=== PATIENT | male | born 1960 | race Caucasian/White ===

== ENCOUNTER 2016-12-22 10:13 | Inpatient (IN) | payer BC, OTHER ==
[2016-11-30 10:02] VITALS: BMI 27.0
--- NOTE | 2016-11-30 10:28 | PAT Medication Instructions ---
Service Date Nov 30, 2016. Current Home Medication List Bupropion (Wellbutrin Sr), 150 MG PO BID Lamotrigine (Lamictal), 200 MG PO BID Lorazepam (Ativan), 1 MG PO QID Medication Instructions For Your Scheduled Surgery - Take the following medications the morning of surgery with a sip of water: Lorazepam (Ativan), 1 MG PO QID Bupropion (Wellbutrin Sr), 150 MG PO BID Lamotrigine (Lamictal), 200 MG PO BID - Take the following medications as scheduled the night before surgery: Lorazepam (Ativan), 1 MG PO QID Bupropion (Wellbutrin Sr), 150 MG PO BID Lamotrigine (Lamictal), 200 MG PO BID If you have any questions please call us at [phone] or [phone] or [phone]
[2016-11-30 11:03] LABS: URINE APPEARANCE CLEAR (CLEAR); URINE BILIRUBIN NEG (NEG); URINE COLOR YELLOW; URINE NITRITE NEG (NEG); URINE SPECIFIC GRAVITY 1.021 (1.000-1.030); UROBILINOGEN NEG (NEG); ZZUR CULT IF INDIC CLEAN CATCH NO
[2016-11-30 11:04] LABS: BASO % 0.6 %; BASO ABS # 0.05 K/uL (0-0.2); COMPLETE YES; EOS % 2.9 %; HEMATOCRIT 47.7 % (42-52); IG% 0.1 %; LYMPH ABS # 2.09 K/uL (1.2-3.4); MEAN CORPUSCULAR HEMOGLOBIN 33.7 pg (25-34); MEAN CORPUSCULAR HGB CONC 35.4 g/dl (32-36); MEAN PLATELET VOLUME 10.1 fL (7.4-10.4); MONO % 6.2 %; NEUT % 66.2 %; PLATELET COUNT 367 K/uL (130-400); RED BLOOD COUNT 5.02 M/uL (4.7-6.1); WHITE BLOOD COUNT 8.71 K/uL (4.8-10.8)
[2016-11-30 11:06] LABS: MANUAL MICROSCOPIC REQUIRED? NO; REVIEW REQ? NO
[2016-11-30 11:13] LABS: PARTIAL THROMBOPLASTIN RATIO 1.3; PROTHROMBIN TIME (PATIENT) 10.2 SECONDS (9.0-12.0)
--- NOTE | 2016-11-30 11:16 | DIAGNOSTIC IMAGING REPORT ---
CHEST PREADMISSION(PA/LAT) HISTORY: 56 years-old Male PAT preadmission study. No acute chest complaints COMPARISON: None available TECHNIQUE: Frontal and lateral views of the chest FINDINGS: Cardiomediastinal and hilar silhouettes are within normal limits. There is atherosclerosis of the aorta. No pneumothorax, pleural effusion or focal airspace consolidation. There is mild hyperinflation. The bones of the chest are grossly intact. Degenerative changes are seen about the shoulders. Cholecystectomy clips are noted. IMPRESSION: Mild hyperinflation without acute cardiopulmonary process. The above report was generated using voice recognition software. It may contain grammatical, syntax or spelling errors. Electronically signed by: Yinka Lara M.D. 11/30/2016 11:14 AM Dictated Date/Time: 11/30/2016 11:10 AM
[2016-11-30 12:05] LABS: BUN/CREATININE RATIO 11.9 (10-20); CALCIUM 9.7 mg/dl (8.5-10.1); CREATININE 1.1 mg/dl (0.60-1.40); POTASSIUM 5.2 mmol/L (3.5-5.1)
--- NOTE | 2016-12-21 19:27 | HISTORY & PHYSICAL EXAMINATION ---
DATE OF ADMISSION: CHIEF COMPLAINT: Chronic left shoulder pain. HISTORY OF PRESENT ILLNESS: This is a 56-year-old male patient of Dr. Hackett complaining of chronic left shoulder pain, longstanding, now progressively getting worse over the past 7-8 years. No trauma or injuries. X-rays and clinical exams have diagnosed end-stage osteoarthritis. The patient wishes to proceed with a left total shoulder arthroplasty. PAST MEDICAL HISTORY: Loud snoring with no diagnosis of sleep apnea, anxiety, acid reflux. SOCIAL HISTORY: He is 1-1/2 pack per day smoker and he is an occasional drinker. PAST SURGICAL HISTORY: Back surgery and left shoulder surgery x2. FAMILY HISTORY: Noncontributory. REVIEW OF SYSTEMS: The patient complains of chronic left shoulder pain and decreased function. Otherwise, denies any shortness of breath, chest pain, nausea, vomiting or any other joint complaints. MEDICATIONS: Include Wellbutrin 150 mg b.i.d., Lamictal 200 mg b.i.d., Ativan 1 mg q.i.d. p.r.n. ALLERGIES: No known drug allergies. PHYSICAL EXAMINATION: GENERAL: Well-developed, well-nourished 56-year-old male in no acute distress. He is alert and oriented x3 and pleasant. HEENT: Normocephalic, atraumatic. Extraocular motions are intact. Pupils are equal and reactive to light. HEART: Regular rate and rhythm, no murmurs appreciated. LUNGS: Clear. ABDOMEN: Soft, nontender, bowel sounds are present. EXTREMITIES: Left shoulder reveals crepitation and pain with passive range of motion. Active range of motion is 280 degrees of forward elevation passively to 170. He has 4+/5 strength. NEUROLOGIC: Neurovascularly he is intact in his left upper extremity. DIAGNOSES: Left shoulder end-stage osteoarthritis. He has a history of anxiety. He has a history of snoring with no diagnosis of sleep apnea. He has acid reflux. PLAN: The patient was advised of his diagnosis. Indications, risks, benefits, and postop course have all been reviewed. The patient wishes to proceed with a left total shoulder arthroplasty. Necessary consent forms, preoperative testing and clearances will be obtained.
[~2016-12-22] VITALS: Ht 175.3 cm; Wt 84.0 kg
[2016-12-22] VITALS (7 sets, daily range): BP systolic 121–162; BP diastolic 71–103; PULSE 62–80; TEMP 36.4–36.9; O2SAT 94–96; Ht 175.3 cm; Wt 84.0 kg
[~2016-12-22 10:13] MED LIST: ACETAMINOPHEN 500 MG TAB PO SCH; ATROPINE SULFATE 0.1 MG/ML 5ML SYR IV PRN; ATV/1 PO; BUPR-79 PO; CEFAZOLIN 2000MG IV PUSH 10 ML IV SCH; CeleBREX 200 MG CAP PO SCH; DEXAMETHASONE 4 MG TAB PO SCH; EpHEDrine SULFATE INJ 50 MG/ML AMP IV PRN; FAMOTIDINE 20 MG TAB PO SCH; FENTANYL CITRATE INJ 50 MCG/1 ML 2 ML VIAL IV PRN; GABAPENTIN 300 MG CAP PO SCH; HYDROmorphone INJ 1 MG/ML SYR IV PRN; LACTATED RINGER'S 1000ML 1,000 ML IV SCH; LACTATED RINGER'S 1000ML IV SCH; LAMO200T38 PO; METOCLOPRAMIDE HCL 10 MG TAB PO SCH; ONDANSETRON INJ 2 MG/ML 2 ML VIAL IV PRN; PROMETHAZINE HCL INJ 12.5 MG in SODIUM CHLORIDE 0.9% 50ML 50 ML IV PRN; ROPIVACAINE 0.5% 5 MG/ML 30 ML VIAL ONE
[2016-12-22] MEDS ORDERED: MIDAZOLAM HCL 1 MG/ML 2ML VIAL ONE (10:53)
[2016-12-22] MEDS ORDERED: FENTANYL CITRATE INJ 50 MCG/1 ML 2 ML VIAL ONE ×2 (10:53→17:00)
--- NOTE | 2016-12-22 11:28 | History & Physical Bridge Note ---
H&P Re-Evaluation Bridge Note: I have examined the patient, reviewed the History & Physical and in the interval since the performance of the History & Physical I have noted the following changes of clinical significance: No changes noted
[2016-12-22] MEDS ORDERED: BACITRACIN 50000 UNIT VIAL ONE (11:37)
[2016-12-22] MEDS ORDERED: EpINEphrine HCL INJ 1 MG/ML 5ML SYRINGE ONE (11:38)
[2016-12-22] MEDS ORDERED: PROPOFOL IV EMULSION 10 MG/ML 20 ML VIAL IV ONE (13:44)
[2016-12-22] MEDS ORDERED: ROCURONIUM BROMIDE 10 MG/ML 5 ML VIAL IV ONE ×2 (13:44→14:14)
[2016-12-22] MEDS ORDERED: ONDANSETRON INJ 2 MG/ML 2 ML VIAL ONE (13:44)
[2016-12-22] MEDS ORDERED: NEOSTIGMINE METHYLSULFATE 5 MG/5 ML SYR ONE (13:44)
[2016-12-22] MEDS ORDERED: LIDOCAINE HCL 2% 2 ML VIAL (20MG/ML) ONE (13:44)
[2016-12-22] MEDS ORDERED: GLYCOPYRROLATE INJ 0.2 MG/ML VIAL ONE (13:44)
[2016-12-22] MEDS ORDERED: DEXAMETHASONE SOD INJ 4 MG/ML VIAL ONE (13:44)
[2016-12-22] MEDS ORDERED: MAGNESIUM HYDROXIDE SUSP 30 ML UDC PO PRN (16:45)
[2016-12-22] MEDS ORDERED: MoRPHine SULFATE 4 MG/ML 1 ML CARP\\VIAL IV PRN (16:45)
[2016-12-22] MEDS ORDERED: ONDANSETRON INJ 2 MG/ML 2 ML VIAL IV PRN (16:45)
[2016-12-22] MEDS ORDERED: MoRPHine SULFATE 2 MG/ML CARP IV PRN (16:45)
[2016-12-22] MEDS ORDERED: BISACODYL 10 MG SUPP PR PRN (16:45)
[2016-12-22] MEDS ORDERED: ALUMINUM/MAGNESIUM SUSP 30 ML UDC PO PRN (16:45)
--- NOTE | 2016-12-22 16:46 | [facility] Post Operative Brief Note ---
Immediate Operative Summary Operative Date Dec 22, 2016. Pre-Operative Diagnosis Left shoulder end-stage osteoarthritis,calcium deposit subscapularis tendon,hx of prior surgery x 2 for instability Post-Operative Diagnosis same as pre-operative Procedure(s) Performed Left total shoulder arthroplasty,bliceps tenodesis, exclision calcium deposit ,excision old suture material and large bone fragments anterior capsule. Surgeon Dr. Rodriguez [employer] Registrar Surgeon(s) Krunal Merino PA-C Estimated Blood Loss 50CC Findings as above , grade 4 djd,eburnated bone. Specimens Specimen A: Portion of left humeral head Drains 2 hemovac Anesthesia general and regional Complication(s) None Disposition Recovery Room / PACU
--- NOTE | 2016-12-22 16:59 | DIAGNOSTIC IMAGING REPORT ---
L SHOULDER MIN 2 VIEWS ROUTINE HISTORY: 56 years-old Male Post shoulder surgery status post left shoulder arthroplasty. Degenerative joint disease. COMPARISON: Chest radiograph 11/30/2016. TECHNIQUE: 2 views of the left shoulder FINDINGS: Status post left shoulder hemiarthroplasty. Surgical drain is in place with associated skin lyly and expected postsurgical soft tissue swelling and deep tissue air. Alignment is satisfactory. No periprosthetic fracture or retained foreign body. Subsegmental linear atelectasis of the left lung base. IMPRESSION: Status post left shoulder hemiarthroplasty without complication identified. The above report was generated using voice recognition software. It may contain grammatical, syntax or spelling errors. Electronically signed by: Yinka Lara M.D. 12/22/2016 4:57 PM Dictated Date/Time: 12/22/2016 4:56 PM
[2016-12-22] MEDS ORDERED: LORAZEPAM 1 MG TAB PO SCH ×2 (17:00→21:00)
[2016-12-22] MEDS ORDERED: HYDROmorphone INJ 1 MG/ML SYR ONE (17:19)
--- NOTE | 2016-12-22 17:50 | Anesthesiology Progress Note ---
Anesthesia Post Op Note Date & Time Dec 22, 2016 at 17:50 Vital Signs Pain Intensity: 6.0 Vital Signs Past 12 Hours Date Time Temp Pulse Resp B/P (MAP) Pulse Ox O2 Delivery O2 Flow Rate FiO2 12/22/16 17:43 36.8 12/22/16 17:42 80 16 12/22/16 17:42 78 16 95 12/22/16 17:41 155/86 12/22/16 17:37 82 16 12/22/16 17:37 82 16 96 12/22/16 17:36 154/97 12/22/16 17:32 81 14 95 12/22/16 17:32 81 14 12/22/16 17:31 152/94 12/22/16 17:27 78 15 12/22/16 17:27 79 15 95 12/22/16 17:26 138/86 12/22/16 17:24 84 13 12/22/16 17:24 82 13 94 12/22/16 17:21 155/95 12/22/16 17:19 73 16 94 12/22/16 17:19 74 16 12/22/16 17:16 162/91 12/22/16 17:14 73 16 12/22/16 17:14 73 16 94 12/22/16 17:13 77 16 95 12/22/16 17:13 77 16 12/22/16 17:11 149/82 12/22/16 17:08 76 14 12/22/16 17:08 76 14 94 12/22/16 17:06 147/88 12/22/16 17:03 80 18 12/22/16 17:03 80 18 94 12/22/16 17:02 81 17 95 12/22/16 17:02 80 17 12/22/16 17:01 152/89 12/22/16 16:57 82 19 96 12/22/16 16:57 83 19 12/22/16 16:56 154/96 12/22/16 16:52 88 17 153/90 12/22/16 16:52 17 12/22/16 16:51 162/109 12/22/16 16:47 84 17 12/22/16 16:47 84 17 149/84 99 12/22/16 16:42 84 13 12/22/16 16:42 83 13 98 12/22/16 16:41 169/88 12/22/16 16:38 154/86 12/22/16 16:37 36.3 87 18 154/86 97 Oxymask 10 12/22/16 16:37 91 16 96 12/22/16 16:37 91 16 12/22/16 10:30 36.4 62 18 162/103 96 Notes Mental Status: alert / awake / arousable, participated in evaluation Pt Amnestic to Procedure: Yes Nausea / Vomiting: adequately controlled Pain: adequately controlled Airway Patency, RR, SpO2: stable & adequate BP & HR: stable & adequate Hydration State: stable & adequate Anesthetic Complications: no major complications apparent Block working well in pacu
[2016-12-22] MEDS: D5W AND 1/2NSS + 20MEQ KCL 1,000 ML IV SCH (18:45)
--- NOTE | 2016-12-22 19:13 | OPERATIVE REPORT ---
DATE OF OPERATION: 12/22/2016 INDICATION FOR PROCEDURE: The patient is a 56-year-old male with a long history of left shoulder pain. He has chronic progressive osteoarthritis in his left shoulder. He has had too instability surgeries in his shoulder years ago. He has radiographs demonstrating that he is [id number] in the glenohumeral joint, has more of a concentric wear type pattern. He also had radiographs, also demonstrated a large calcium deposit in the subscapularis tendon. PREOPERATIVE DIAGNOSES: Left shoulder end-stage osteoarthritis, history of prior instability surgeries x2, calcium deposits subscapularis tendon. POSTOPERATIVE DIAGNOSES: Left shoulder end-stage osteoarthritis, history of prior instability surgeries x2, calcium deposits subscapularis tendon, biceps tendinopathy, old suture material status post prior anterior capsular and subscapularis repair with large bone fragments in the anterior capsule. PROCEDURE: Left total shoulder arthroplasty, biceps tenodesis, excision of calcium deposit subscapularis, excision old suture material and large bone fragments anterior capsule. SURGEON: Shiv Rodriguez MD. MEMBERSHIP CORRESPONDENT: Krunal Merino PA-C. ANESTHESIA: Regional block and general. OPERATIVE PROCEDURE: The patient was taken to the operating room, anesthetized with regional block and general anesthetic. He was positioned on the operating room table in a 30 degree beach chair position. He was translated to left side of the bed, so his shoulder could be manipulated off the bed as necessary. A towel roll was placed under the medial border of his left scapula. A foam headrest was placed. Protective eyewear was placed. TEDs and SCDs were placed. Left shoulder exam demonstrated that he had 140 degrees of forward elevation, 90 degrees of abduction and external rotation to 25-30 degrees only. He had an old scar anteriorly about the left shoulder which is more lateral than a typical deltopectoral approach. The patient's left shoulder was sterilely prepped and draped with ChloraPrep. I did not use the previous scar as I felt it was malpositioned and made an incision in the deltopectoral interval right along the interval, starting at or just slightly medial to the coracoid process extending down along the deltopectoral interval and this incision did intersect the lower tip of the other scar. The skin was incised sharply. The subcutaneous flaps were elevated. The patient's cephalic vein was dissected out and retracted laterally with the deltoid. Pectoralis was retracted medially. A centimeter of the pectoralis was released for inferior exposure. There was some chronic biceps tenosynovitis. Tendon sheath was opened up. Tenosynovectomy was performed. The biceps tendon was tenodesed to the pectoralis tendon with fcubhm-[id number] #2 Fiberwire sutures and the proximal biceps was resected. The circumflex vessels were identified, tied off with silk ties and divided laterally. The bursa over the subscapularis was resected. This revealed small suture material where the subscapularis was transected from prior surgery. There was also a large calcium deposit within the subscapularis tendon noted. All suture material was removed with a rongeur. The subscapularis bursa and bursa in the subacromial space was resected revealing an intact rotator cuff. A self-retaining retractor was placed to retract the conjoined tendon medially and the deltoid laterally. The muscle fibers of the subscapularis was split at the level of the circumflex vessels. They were split down to the capsule which was clearly identified and a Kitner elevator was used to reflect the subscapularis fibers off the inferior capsule and the axillary nerve was identified with a tug test and protected with a blunt Hohmann retractor. The rotator interval was then opened up and extended laterally. Some of the joint effusion was evacuated. A transtendinous incision was made through the subscapularis revealed repair site leaving a cuff of tissue for repair on the lesser tuberosity. For making this incision we entered this large calcium deposit which had to be shelled out from the underlying subscapularis tendon. The deposit was at least 2 cm x 1 cm. The incision was carried through the subscapularis through the capsule lateral to the joint line and then a traction suture using #1 Vicryl was placed into the subscapularis tendon. The rotator interval was opened up down to the glenoid. The Fukuda retractor was placed into the joint. The humeral head was retracted posteriorly. This revealed glenoid was completely down to bone on bone and there were large calcified spurs or calcifications in the old suture material which was in the anterior capsule, possibly from the old repair noted anterior to the glenoid and attached to the capsule. At this time to get better exposure I externally rotated the humerus and removed the inferior humeral osteophytes from anterior to posterior and I released the capsule along the neck of the humerus. Then retracted the humerus posterior to the glenoid, released the capsule off the anterior glenoid and then released the rotator interval, we had a 360 degree release of the subscapularis. We also freed up the large calcified loose bodies or bone spurs from the underlying capsule and resected them completely along with some of the suture material which was resected from the old repair. We did an anterior inferior and posterior inferior capsular release using electrocautery on bone and a Edward elevator to gain exposure to the glenoid. The axillary nerve was safely protected during this procedure. At this time, the humeral head was re-exposed with extension and external rotation and the oscillating saw was used to resect the articular surface in an anatomic fashion match the patient's normal version. The humeral shaft was then prepared for the implant using an awl followed by sequential broaches up to a size 5. The 5 broach was left in place and a cup protector was placed and then we retracted the humerus posterior to the glenoid. We had full exposure of the glenoid which was completely devoid of any articular surface and was eburnated bone. There was more of a concentric type wear pattern. The head size was sized for a 52, so we were with a 52 glenoid component. We used the Affiniti CortiLoc glenoid component from 20A and the Ascend Flex system from 20A. The retractors were placed to expose the glenoid. The 52 template was placed and the central drill hole was marked, central drill hole was made followed by a 52 mm reamer followed by the guide for the peripheral peg holes, which were drilled and then the glenoid was irrigated and the holes were packed with epinephrine soaked tampons. Then the Palacos G cement was vacuum mixed. Then the glenoid was dried and the 52 pegged Affiniti CortiLoc glenoid was cemented into position with the central peg press fit and peripheral peg cemented base of central peg cemented. This was fully impacted that tight press fit and held in place until the cement cured and then went ahead and prepared the humerus for trialing. I went ahead and trialed a 52 x 18 and a 52 x 23 mm in diameter humeral head. The patient had some laxity in ligaments posteriorly so the smaller diameter humeral head had some posterior subluxation with forward elevation, so I felt we need to improve stability and I went ahead with the 23 x 52 high offset humeral head with eccentric offset posterior. This trialed well and was stable through full motion. The patient was noted to have some generalized ligamentous laxity of shoulder. The trial components were removed. The angle of the trial was a B angle so the final humeral component was assembled which was the 5B standard humeral stem assembled to the 52 x 23 mm high offset humeral head. The humeral shaft was irrigated out. We placed 3 drill holes through the hard bone in the bicipital groove lateral to the lesser tuberosity and placed transosseous #5 FiberWire sutures through and then took some bone graft from the humeral head and partially put the 5B stem which was assembled to the humeral head part way down the shaft. We placed the bone graft in there to enhance a tighter press fit fixation and then impacted the implant fully with a tight pressfit. The humerus was then reduced to the glenoid. We verified stability. The subscapularis was then repaired with the transosseous #5 FiberWire sutures and we did further soft tissue fixation with iwngli-os-vtqfs #2 FiberWire yvak-vy-rqry sutures in the soft tissue and closed the rotator interval in maximal external rotation with mpszju-dl-yjlfd #2 FiberWire sutures. The pectoralis was then repaired with rlqrfk-px-rcbgt #2 FiberWire sutures reinforcing the tenodesis of the biceps by passing sutures through the biceps as well. The shoulder was then assessed for range of motion and the patient had 140 degrees of forward elevation, 110 degrees of abduction and 25 degrees of external rotation without any tension on the repair. Shoulder was stable. The wound was irrigated with antibiotic solution and bacitracin. Two drains were brought out laterally and connected to a Hemovac. They were placed deep to deltopectoral interval. One was placed deep to the conjoined tendon and 1 posterior to the deltoid. Then the deltopectoral interval was closed with kbzdxl-pe-ejbgs #1 Vicryl sutures and the subcutaneous tissue closed with interrupted 2-0 Vicryl sutures, skin closed with lyly. Estimated blood loss 50 mL. SAVANNA Pizarro was my psychiatric technician assistant. He functioned as psychiatric technician assistant with arm positioning, soft tissue retraction, instrument management and performed the subcutaneous skin closure and will participate in postop care of the patient. I attest to the content of the Intraoperative Record and any orders documented therein. Any exception s are noted below.
[2016-12-22] MEDS ORDERED: LORAZEPAM 1 MG TAB PO PRN (19:15)
--- NOTE | 2016-12-22 20:25 | Medical Consult ---
Consultation Date of Consultation: Dec 22, 2016. Attending Physician: Shiv Rodriguez M.D. Reason for Consultation: Medical eval post-op History of Present Illness 56 y/o M Hx ZABRINA, GERD - presented for elective L TSA. Post-op pt has no specific complaints. Pain is adequately controlled, denies CP, SOB, N/V. Walking and tolerating PO. Past Medical/Surgical History 1) Borderline ZABRINA on sleep study - not advised on CPAP 2) GERD Family History Non contributory Social History Smoking Status: Current Every Day Smoker Allergies Coded Allergies: No Known Allergies (Verified , 12/22/16) Current Inpatient Medications Current Inpatient Medications Medications (Trade) Dose Ordered Sig/Jay Route Start Time Stop Time Status Last Admin Dose Admin Lactated Ringer's 1,000 ml @ 60 mls/hr [id number] IV 12/22/16 06:00 12/22/16 22:39 Lactated Ringer's 1,000 ml @ 15 mls/hr Q24H IV 12/22/16 06:00 12/23/16 05:59 12/22/16 10:46 15 MLS/HR Bupropion HCl (Wellbutrin-Sr Tab) 150 mg BID PO 12/22/16 21:00 01/21/17 20:59 Lamotrigine (Lamictal Tab) 200 mg BID PO 12/22/16 21:00 01/21/17 20:59 Morphine Sulfate (MoRPHine SULFATE INJ) 2 mg Q4HWA PRN IV 12/22/16 16:45 01/05/17 16:44 Morphine Sulfate (MoRPHine SULFATE INJ) 4 mg Q4HWA PRN IV 12/22/16 16:45 01/05/17 16:44 Ondansetron HCl (Zofran Inj) 4 mg Q6H PRN IV 12/22/16 16:45 01/21/17 16:44 Al Hydroxide/Mg Hydroxide (Maalox Susp) 30 ml Q4H PRN PO 12/22/16 16:45 01/21/17 16:44 Pantoprazole Sodium (Protonix Tab) 40 mg QAM PO 12/23/16 09:00 01/22/17 08:59 Potassium Chloride/Dextrose/ Sod Cl 1,000 ml @ 100 mls/hr Q10H IV 12/22/16 18:30 01/21/17 18:29 12/22/16 18:45 100 MLS/HR Celecoxib (CeleBREX CAP) 200 mg BID PO 12/22/16 21:00 01/21/17 20:59 Oxycodone HCl (Roxicodone Immediate Rel Tab) `1-2 TABS FOR PAIN `1 TAB... Q4H PRN PO 12/22/16 16:45 01/05/17 16:44 Acetaminophen (Tylenol Tab) 1,000 mg Q8 PO 12/22/16 22:00 01/21/17 21:59 Magnesium Hydroxide (Milk Of Magnesia Susp) 30 ml Q6H PRN PO 12/22/16 16:45 01/21/17 16:44 Bisacodyl (Dulcolax Supp) 10 mg DAILY PRN NM 12/22/16 16:45 01/21/17 16:44 Docusate Sodium (coLACE CAP) 100 mg BID PO 12/22/16 21:00 01/21/17 20:59 Multivitamins (Multivitamin Tab) 1 tab DAILY PO 12/23/16 09:00 01/22/17 08:59 Cefazolin Sodium 2000 mg/Syringe 10 ml @ 2.5 mls/min Q8H IV 12/22/16 22:00 12/23/16 21:59 Lorazepam (Ativan Tab) 1 mg HS PO 12/22/16 21:00 01/21/17 20:59 Lorazepam (Ativan Tab) 1 mg TID PRN PO 12/22/16 19:15 01/21/17 19:14 Review of Systems Constitutional: No fever, No chills, No sweats Eyes: No worsening of vision ENT: No hearing loss, No unusual epistaxis, No nasal symptoms Respiratory: No cough, No wheezing Cardiovascular: No chest pain, No orthopnea, No PND Abdomen: No pain, No vomiting Musculoskeletal: + joint pain, + muscle pain (Pain is limited to the surgical site) Genitourinary - Male: No hematuria, No dysuria Neurologic: No memory loss, No weakness Psychiatric: No depression symptoms Endocrine: No fatigue Hematologic / Lymphatic: No abnormal bleeding/bruising Integumentary: No rash Allergic / Immunologic: No environmental allergies Physical Exam Date Time Temp Pulse Resp B/P (MAP) Pulse Ox O2 Delivery O2 Flow Rate FiO2 12/22/16 19:59 36.9 74 18 121/71 (88) 96 Nasal Cannula 2.0 12/22/16 19:59 Nasal Cannula 2.0 12/22/16 19:00 36.7 72 18 131/75 (93) 95 Nasal Cannula 2.0 12/22/16 18:38 36.5 74 18 135/84 (101) 95 Nasal Cannula 2.0 12/22/16 18:00 94 Nasal Cannula 2.0 12/22/16 18:00 36.5 80 18 142/88 (106) 94 Nasal Cannula 2.0 12/22/16 17:48 79 16 12/22/16 17:48 77 16 96 12/22/16 17:46 148/94 12/22/16 17:43 74 16 94 12/22/16 17:43 36.8 12/22/16 17:43 75 16 12/22/16 17:42 80 16 12/22/16 17:42 78 16 95 12/22/16 17:41 155/86 12/22/16 17:37 82 16 12/22/16 17:37 82 16 96 12/22/16 17:36 154/97 12/22/16 17:32 81 14 95 12/22/16 17:32 81 14 12/22/16 17:31 152/94 12/22/16 17:27 78 15 12/22/16 17:27 79 15 95 12/22/16 17:26 138/86 12/22/16 17:24 84 13 12/22/16 17:24 82 13 94 12/22/16 17:21 155/95 12/22/16 17:19 73 16 94 12/22/16 17:19 74 16 12/22/16 17:16 162/91 12/22/16 17:14 73 16 12/22/16 17:14 73 16 94 12/22/16 17:13 77 16 95 12/22/16 17:13 77 16 12/22/16 17:11 149/82 12/22/16 17:08 76 14 12/22/16 17:08 76 14 94 12/22/16 17:06 147/88 12/22/16 17:03 80 18 12/22/16 17:03 80 18 94 12/22/16 17:02 81 17 95 12/22/16 17:02 80 17 12/22/16 17:01 152/89 12/22/16 16:57 82 19 96 12/22/16 16:57 83 19 12/22/16 16:56 154/96 12/22/16 16:52 88 17 153/90 12/22/16 16:52 17 12/22/16 16:51 162/109 12/22/16 16:47 84 17 12/22/16 16:47 84 17 149/84 99 12/22/16 16:42 84 13 12/22/16 16:42 83 13 98 12/22/16 16:41 169/88 12/22/16 16:38 154/86 12/22/16 16:37 36.3 87 18 154/86 97 Oxymask 10 12/22/16 16:37 91 16 96 12/22/16 16:37 91 16 12/22/16 10:30 36.4 62 18 162/103 96 General Appearance: WD/WN, no apparent distress Head: normocephalic Eyes: normal inspection ENT: normal ENT inspection, pharynx normal Neck: supple, no JVD Respiratory/Chest: chest non-tender, lungs clear, normal breath sounds Cardiovascular: regular rate, rhythm, normal peripheral pulses Abdomen/GI: normal bowel sounds, non tender, soft Back: normal inspection, no CVA tenderness, no muscle spasm Extremities/Musculoskelatal: normal inspection, no calf tenderness, normal capillary refill, + pertinent finding (L shoulder is bandaged - arm in sling) Neurologic/Psych: infectious waste technician II-XII nml as tested, no motor/sensory deficits, alert, oriented x 3 Skin: normal color Assessment & Plan 56 y/o M Hx ZABRINA, GERD - presented for elective L TSA. Post-op pt has no specific complaints. Pain is adequately controlled, denies CP, SOB, N/V. 1) Post-op - recovering well. PT/OT per ortho, not likely to require anticoag unless mobility is restricted - would consider daily ASA. 2) ZABRINA - states that his testing was borderline and that he has not been advised on CPAP use presntly - caution with excessive narcotic use. 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
[2016-12-22] MEDS: BuPROPion SR 150 MG TABCR PO SCH (20:31)
[2016-12-22] MEDS: CeleBREX 200 MG CAP PO SCH (20:32)
[2016-12-22] MEDS: DOCUSATE SODIUM 100 MG CAP PO SCH (20:33)
[2016-12-22] MEDS: ACETAMINOPHEN 500 MG TAB PO SCH (21:52)
[2016-12-22] MEDS: CEFAZOLIN IV 2,000 MG in SYRINGE 0 ML IV SCH (21:55)
[2016-12-23 03:30] VITALS: BP 125/68; PULSE 68; TEMP 36.5; O2SAT 96
[2016-12-23] MEDS: D5W AND 1/2NSS + 20MEQ KCL 1,000 ML IV SCH (04:26)
[2016-12-23] MEDS: ACETAMINOPHEN 500 MG TAB PO SCH ×2 (05:34→13:56)
[2016-12-23] MEDS: CEFAZOLIN IV 2,000 MG in SYRINGE 0 ML IV SCH ×2 (05:34→13:55)
[2016-12-23 06:58] VITALS: BP 153/74; PULSE 69; TEMP 36.4; O2SAT 95
[2016-12-23 07:23] LABS: BUN/CREATININE RATIO 14.7 (10-20); CALCIUM 8.4 mg/dl (8.5-10.1); CREATININE 0.96 mg/dl (0.60-1.40); POTASSIUM 4.3 mmol/L (3.5-5.1)
[2016-12-23 07:32] LABS: HEMATOCRIT 40.4 % (42-52); MEAN CELL VOLUME 95.7 fL (80-100); MEAN CORPUSCULAR HGB CONC 33.4 g/dl (32-36); MEAN PLATELET VOLUME 10.1 fL (7.4-10.4); PLATELET COUNT 316 K/uL (130-400); RED BLOOD COUNT 4.22 M/uL (4.7-6.1); WHITE BLOOD COUNT 18.14 K/uL (4.8-10.8)
[2016-12-23] MEDS: BuPROPion SR 150 MG TABCR PO SCH (08:28)
[2016-12-23] MEDS: DOCUSATE SODIUM 100 MG CAP PO SCH (08:28)
[2016-12-23] MEDS: CeleBREX 200 MG CAP PO SCH (08:29)
[2016-12-23] MEDS: OXYCODONE HCL IR 5 MG TAB (IMMEDIATE RELEASE) PO PRN ×2 (08:33→13:09)
[2016-12-23] MEDS ORDERED: MULTIVITAMIN TAB PO SCH (09:00)
[2016-12-23] MEDS ORDERED: PANTOprazole SOD 40 MG TAB PO SCH (09:00)
--- NOTE | 2016-12-23 09:20 | Orthopedic Progress Note ---
Orthopedic Progress Note Date of Service Dec 23, 2016. Subjective Post OP Day: 1 Reports: feeling well, pain controlled w PO medications, Denies: complaints, chest pain, SOB, nausea / vomiting, light headedness, calf pain Objective N/V intact, capillary refill less than 2 sec., dressing C/D/I, A&O x3 Sling in tact, fingers mobile Date Time Temp Pulse Resp B/P (MAP) Pulse Ox O2 Delivery O2 Flow Rate FiO2 12/23/16 07:45 Room Air 12/23/16 06:58 36.4 69 16 153/74 (100) 95 Room Air 12/23/16 03:30 36.5 68 16 125/68 (87) 96 Room Air 12/22/16 23:15 Room Air 12/22/16 23:11 36.7 64 14 149/78 (101) 95 Room Air 12/22/16 21:03 36.6 66 16 134/78 (96) 96 Nasal Cannula 2.0 12/22/16 19:59 36.9 74 18 121/71 (88) 96 Nasal Cannula 2.0 12/22/16 19:59 Nasal Cannula 2.0 12/22/16 19:00 36.7 72 18 131/75 (93) 95 Nasal Cannula 2.0 12/22/16 18:38 36.5 74 18 135/84 (101) 95 Nasal Cannula 2.0 12/22/16 18:00 94 Nasal Cannula 2.0 12/22/16 18:00 36.5 80 18 142/88 (106) 94 Nasal Cannula 2.0 12/22/16 17:48 79 16 12/22/16 17:48 77 16 96 12/22/16 17:46 148/94 12/22/16 17:43 74 16 94 12/22/16 17:43 36.8 12/22/16 17:43 75 16 12/22/16 17:42 80 16 12/22/16 17:42 78 16 95 12/22/16 17:41 155/86 12/22/16 17:37 82 16 12/22/16 17:37 82 16 96 12/22/16 17:36 154/97 12/22/16 17:32 81 14 95 12/22/16 17:32 81 14 12/22/16 17:31 152/94 12/22/16 17:27 78 15 12/22/16 17:27 79 15 95 12/22/16 17:26 138/86 12/22/16 17:24 84 13 12/22/16 17:24 82 13 94 12/22/16 17:21 155/95 12/22/16 17:19 73 16 94 12/22/16 17:19 74 16 12/22/16 17:16 162/91 12/22/16 17:14 73 16 12/22/16 17:14 73 16 94 12/22/16 17:13 77 16 95 12/22/16 17:13 77 16 12/22/16 17:11 149/82 12/22/16 17:08 76 14 12/22/16 17:08 76 14 94 12/22/16 17:06 147/88 12/22/16 17:03 80 18 12/22/16 17:03 80 18 94 12/22/16 17:02 81 17 95 12/22/16 17:02 80 17 12/22/16 17:01 152/89 12/22/16 16:57 82 19 96 12/22/16 16:57 83 19 12/22/16 16:56 154/96 12/22/16 16:52 88 17 153/90 12/22/16 16:52 17 12/22/16 16:51 162/109 12/22/16 16:47 84 17 12/22/16 16:47 84 17 149/84 99 12/22/16 16:42 84 13 12/22/16 16:42 83 13 98 12/22/16 16:41 169/88 12/22/16 16:38 154/86 12/22/16 16:37 36.3 87 18 154/86 97 Oxymask 10 12/22/16 16:37 91 16 96 12/22/16 16:37 91 16 12/22/16 10:30 36.4 62 18 162/103 96 Laboratory Results 24 Hours: Test 12/23/16 06:03 Hematocrit 40.4 % Hemoglobin 13.5 g/dL Assessment & Plan Assessment: POD #1, Left shoulder TSA, biceps tenodesis Plan: PT/ OT D/C planning- Home w OPPT per medicine. Inhouse Planning Pain Management: Celebrex, Morphine, PO Tylenol, Oxy IR DVT Prophylaxis: TEDs, SCDs Discharge Planning Discharge Planning: home with oppt Pain Management: PO Tylenol, Oxy IR Therapy: Physical Therapy, Occupational Therapy
[2016-12-23 11:57] VITALS: BP 183/88; PULSE 69; TEMP 36.6; O2SAT 95
[2016-12-23 12:12] VITALS: BP 179/96
[2016-12-23 13:58] VITALS: BP 129/73
[2016-12-23] MEDS ORDERED: ACET-24 PO (14:06)
[2016-12-23] MEDS ORDERED: CLB200 PO (14:07)
[2016-12-23] MEDS ORDERED: RXC5 PO (14:07)
--- NOTE | 2016-12-23 14:08 | Discharge Instructions ---
Discharge Instructions Date of Service Dec 23, 2016. Admission Reason for Admission: Left Shoulder Degenerative Joint Disease Discharge Discharge Diagnosis / Problem: Left TSA, biceps tenodesis Discharge Goals Goal(s): Improve function Activity Recommendations Activity Limitations: as noted below . Instructions / Follow-Up Instructions / Follow-Up ACTIVITY RECOMMENDATIONS: SELF CARE INSTRUCTIONS AFTER TOTAL SHOULDER ARTHROPLASTY A. You may do daily exercises as taught in physical therapy while in hospital. No lifting with the operative arm. Please schedule your outpatient physical therapy appointment to begin within 2-3 days after leaving the hospital. Specific restrictions will be written on your physical therapy prescription that is provided to you. B. You are to wear your sling/immobilizer at all times EXCEPT when performing your daily exercises, participating in physical therapy and for hygiene purposes. C. You may perform dry, daily dressing changes. Please keep your incision covered. You may shower 48 hours after surgery. Do not apply soap or any ointment/ lotions directly over incision. Do not soak incision in bath tub/swimming pool. D. You may use ice as needed to operative shoulder. SPECIAL CARE INSTRUCTIONS: MEDICATION INSTRUCTIONS: *It is recommended you take Aspirin 325mg daily for four weeks post-op. VERY IMPORTANT TO READ AND REVIEW A. There are a few signs you need to watch for after you are home. Call [facility] at [phone] if you experience any of the followin. Increased severe shoulder pain. Some pain is expected especially when you exercise. 2. Increased swelling in you shoulder or arm; pain or swelling in either upper extremity. 3. Any fluid drainage from the incision. 4. Shortness of breath or chest pain. B. Please call [facility] at [phone] if you have any questions or concerns about your operation or recovery. C. Call your physician if: 1. Temperature is greater than 101 degrees (F). 2. Pain is not relieved by prescribed pain medications. 3. Increase drainage or redness from incision. 4. Unanswered questions or concerns. FOLLOW UP VISIT: Please call [facility] at [phone] to schedule a follow up appointment with Dr. Rodriguez or his PA in 12-14 days from your surgery date. Current Hospital Diet Patient's current hospital diet: Regular Diet Discharge Diet Recommended Diet: Regular Diet Procedures Procedures Performed: Left total shoulder arthroplasty,bliceps tenodesis, exclision calcium deposit ,excision old suture material and large bone fragments anterior capsule. Pending Studies Studies pending at discharge: no Laboratory Results Hemoglobin A1c Test 11/30/16 10:45 Range/Units Estimated Average Glucose 117 mg/dl Hemoglobin A1c 5.7 H 4.5-5.6 % Medical Emergencies . Who to Call and When: Medical Emergencies: If at any time you feel your situation is an emergency, please call 911 immediately. . Non-Emergent Contact Non-Emergency issues call your: Primary Care Provider . "Provider Documentation" section prepared by Timothy Ortega. . VTE Core Measure Inpt VTE Proph given/why not?: Makeda Cantor, SCD's [place] Drug Monitoring Program Search Results: patient reviewed within database, no issues identified
[2016-12-23 14:18] VITALS: BP 129/73; PULSE 69; TEMP 36.6; O2SAT 95
[2016-12-24] MEDS ORDERED: NICOTINE 21 MG/24 HR TDSY TD SCH (09:00)
--- NOTE | 2016-12-27 10:24 | DISCHARGE SUMMARY ---
DISCHARGE DIAGNOSIS: Degenerative joint disease, left shoulder. SECONDARY DIAGNOSES: Anxiety, gastroesophageal reflux disease, possible sleep apnea. CONSULTS: Dr. Zia Rodriguez. COMPLICATIONS: None. PROCEDURES: Left total shoulder arthroplasty and biceps tenodesis with excision of calcium deposit, excision of old suture material, and large bone fragments anterior capsule by Dr. Rodriguez on 12/22/2016. BRIEF HISTORY OF PRESENT ILLNESS: As dictated in history and physical. HOSPITAL SUMMARY: The patient was admitted on the above noted date and had the above surgery performed which he tolerated well. On his first postoperative day, he was feeling well and pain was controlled and had no complaints. Neurovascularly intact. Cap refill is less than 2 seconds. Dressings were clean, dry and intact. Sling was intact. Fingers were mobile and vital signs were stable. The patient was afebrile. Hemoglobin was 13.5 and he was started on physical therapy protocol and continued on pain management. He was remaining stable and it was felt that he could be discharged to home on 12/23/2016. For further review, please see chart. LABORATORY AND X-RAY DATA: As per chart. DISCHARGE INSTRUCTIONS: The patient was discharged to home in satisfactory condition on 12/23/2016. DIET: Regular. ACTIVITY: Follow total shoulder arthroplasty instruction sheets and special care instructions as noted. Follow up with Dr. Rodriguez in 2 weeks. The patient to call for appointment if one has not been made for you. DISCHARGE MEDICATIONS: Acetaminophen 1000 mg p.o. q. 8 hours for 21 days, Celebrex 200 mg p.o. b.i.d. for 30 days, oxycodone 5-10 mg p.o. q. 4 hours p.r.n. Resume home meds as listed.
== END 2016-12-23 14:45 | disposition home or self-care (01) | DRG 483 ==
LOC: C.ACU 10:13 → C.3E 16:44 → ENRESERV 17:13
PROVIDERS: ADMIT Orthopaedic Surgery Sports Medicine; ATTEND Orthopaedic Surgery Sports Medicine
PROC: 0RRK0J7 Replacement of Left Shoulder Joint with Synthetic Substitute, Glenoid Surface, Open Approach (ICD-10-PCS; principal; 2016-12-22 12:45)
DX: M19.012 Primary osteoarthritis, left shoulder (principal); F41.9 Anxiety disorder, unspecified; K21.9 Gastro-esophageal reflux disease without esophagitis; F17.200 Nicotine dependence, unspecified, uncomplicated